=== PATIENT | male | born 1960 | race African-American/Black ===

== ENCOUNTER 2017-03-12 12:15 | Emergency (ER) | payer OTHER ==
[~2017-03-12] VITALS: Ht 170.2 cm; Wt 106.1 kg
[~2017-03-12 12:15] MED LIST: CELEBREX 200 M200 M1 PO; DESONIDE60 GM TP; FLEXERIL PO; IBUPROFEN 600600 M1 PO; IBUPROFEN 800800 M1 PO; INDOMETHACIN 2525 MG PO; LANTUS SOL100 UNIT/1 SQ; LYRICA100 MG PO; MOBIC; MORPHINE OR; MORPHINE SULFAT15 M3 PO; NEURONTIN 300300 M1 PO; NORCO 5-325 TA1 EACH PO; WELLBUTRIN SR150 MG PO
[2017-03-12] MEDS ORDERED: COZAAR 25 MG TA25 M1 PO (12:50)
[2017-03-12] MEDS ORDERED: VENTOLIN HFA 1818 GM INH (14:19)
[2017-03-12] MEDS ORDERED: MUCINEX D TABL1 EAC1 PO (14:19)
[2017-03-12] MEDS ORDERED: TESSALON PERLE100 MG PO (14:19)
== END 2017-03-12 14:32 | disposition home or self-care (01) ==
LOC: ER 12:15
DX: J11.1 Influenza due to unidentified influenza virus with other respiratory manifestations (principal); J98.01 Acute bronchospasm; F32.9 Major depressive disorder, single episode, unspecified; E11.9 Type 2 diabetes mellitus without complications; G89.29 Other chronic pain; M54.9 Dorsalgia, unspecified

== ENCOUNTER 2017-11-22 14:21 | Emergency (ER) | payer OTHER ==
[~2017-11-22] VITALS: Ht 175.3 cm; Wt 97.5 kg
--- NOTE | ~2017-11-22 | EKG ---
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: [facility] : 1960 Requested By: Shaheen Resendiz Order Number: [id number] MD: Farzad Gonzalez Measurements Intervals [place] Rate: 77 P: 25 NE: 174 QRS: 22 QRSD: 92 T: 7 QT: 385 QTc: 436 Interpretive Statements Sinus rhythm No significant abnormality Compared to ECG 01/07/2007 11:28:19 Sinus tachycardia no longer present Electronically Signed On 11-23-2017 10:08:38 CDT by Farzad Gonzalez [email or web address] <ELECTRONICALLY SIGNED> By: Farzad Gonzalez MD, [facility] 11/23/17 1008 1417 1417 Farzad Gonzalez MD, FACC /EPI
[~2017-11-22 14:21] MED LIST changes: +COZAAR 25 MG TA25 M1 PO; +MUCINEX D TABL1 EAC1 PO; +TESSALON PERLE100 MG PO; +VENTOLIN HFA 1818 GM INH
[2017-11-22 15:37] LABS: HEMATOCRIT 44.7 % (42.0-52.0); HEMOGLOBIN 15.4 gm/dL (14.0-18.0); MCH 31.6 pg (26.0-34.0); MCHC 34.4 g/dL (28.0-37.0); MCV 91.9 fL (80.0-100.0); RBC 4.86 mil/uL (4.50-6.00); RDW 13.6 % (10.5-14.5); WBC 5.6 thou/uL (4.0-11.0)
[2017-11-22 17:15] LABS: ANION GAP 6 mmol/L (7-16); BUN 14 mg/dL (7-18); CALCIUM 9.6 mg/dL (8.5-10.1); CHLORIDE 101 mmol/L (98-107); CO2 27 mmol/L (21-32); CREATININE 1.2 mg/dL (0.7-1.3); GLUCOSE 133 mg/dL (74-106); POTASSIUM 3.9 mmol/L (3.5-5.1); SODIUM 134 mmol/L (136-145); TROPONIN-I <0.06 ng/mL (<0.06)
[2017-11-22 17:50] VITALS: BP 169/97
== END 2017-11-22 17:59 | disposition home or self-care (01) ==
LOC: ER 14:21
PROVIDERS: Emergency Medicine
DX: R55 Syncope and collapse (principal); G89.29 Other chronic pain; M54.9 Dorsalgia, unspecified; F32.9 Major depressive disorder, single episode, unspecified; E11.9 Type 2 diabetes mellitus without complications; Z79.4 Long term (current) use of insulin

== ENCOUNTER 2018-03-04 19:31 | Emergency (ER) | payer OTHER ==
[~2018-03-04] VITALS: Ht 167.6 cm; Wt 97.5 kg
[2018-03-04 20:28] LABS: ABSOLUTE NEUTROPHILS 2.8 thou/uL (1.4-8.2); BASOPHILS 1.4 % (0.0-2.0); EOSINOPHILS 0.6 % (0.0-3.0); HEMATOCRIT 42.2 % (42.0-52.0); HEMOGLOBIN 14.3 gm/dL (14.0-18.0); LYMPHOCYTES 26.7 % (24.0-44.0); MCH 30.9 pg (26.0-34.0); MCHC 33.9 g/dL (28.0-37.0); MCV 91.4 fL (80.0-100.0); PLATELET COUNT 279 thou/uL (150-400); POLYS 63.3 % (36.0-66.0); RBC 4.62 mil/uL (4.50-6.00); RDW 13.7 % (10.5-14.5); WBC 4.5 thou/uL (4.0-11.0)
[2018-03-04 20:38] LABS: ANION GAP 6 mmol/L (7-16); BUN 12 mg/dL (7-18); CALCIUM 9.3 mg/dL (8.5-10.1); CHLORIDE 100 mmol/L (98-107); CO2 31 mmol/L (21-32); CREATININE 1.2 mg/dL (0.7-1.3); GLUCOSE 230 mg/dL (74-106); POTASSIUM 4.3 mmol/L (3.5-5.1); SODIUM 137 mmol/L (136-145)
[2018-03-04 20:46] LABS: ALBUMIN 3.7 g/dL (3.4-5.0); SGOT 17 U/L (15-37); SGPT 20 U/L (30-65); TOTAL BILIRUBIN 0.4 mg/dL (<0.1-1.0); TOTAL PROTEIN 7.8 g/dL (6.4-8.2); TROPONIN-I <0.06 ng/mL (<0.06)
[2018-03-04 22:21] VITALS: BP 127/73
[2018-03-04 22:23] LABS: URINE BILIRUBIN NEGATIVE (Negative); URINE BLOOD NEGATIVE (Negative); URINE CLARITY CLEAR; URINE COLOR YELLOW; URINE GLUCOSE-RANDOM* NEGATIVE (Negative); URINE KETONES NEGATIVE (Negative); URINE LEUKOCYTES NEGATIVE (Negative); URINE NITRITE NEGATIVE (Negative); URINE PROTEIN (DIPSTICK) NEGATIVE (Negative); URINE SPECIFIC GRAVITY 1.025 (1.005-1.035)
[2018-03-04 22:29] LABS: AMP/METHAMP Negative (Negative); BARBITURATES Negative (Negative); BENZODIAZEPINES Negative (Negative); COCAINE Negative (Negative); METHADONE Negative (Negative); OPIATES Negative (Negative); PCP Negative (Negative)
--- NOTE | 2018-03-05 08:27 | EKG ---
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
== END 2018-03-04 22:22 | disposition home or self-care (01) ==
LOC: ER 19:31
PROVIDERS: Emergency Medicine
DX: S06.9X0A Unspecified intracranial injury without loss of consciousness, initial encounter (principal); E11.9 Type 2 diabetes mellitus without complications; R55 Syncope and collapse; G89.29 Other chronic pain; M54.9 Dorsalgia, unspecified; F32.9 Major depressive disorder, single episode, unspecified; Z79.4 Long term (current) use of insulin; W18.39XA Other fall on same level, initial encounter; Y92.89 Other specified places as the place of occurrence of the external cause; Y93.89 Activity, other specified; Y99.8 Other external cause status

== ENCOUNTER → 2018-03-20 | Outpatient (CLI) | payer OTHER ==
--- NOTE | 2018-03-20 11:31 | 2DMMODE ---
[facility] [place] [address] 2 D/M-MODE ECHOCARDIOGRAM Name: BRYCE BUCKLEY Room #: [facility]#: [id number] Admission: 03/20/18 Attend Phys: lE Adams MD Discharge: Date of : 64 Date of Service: 03/20/18 1130 Report #: [id number] THIS REPORT FOR: //name// APPROVED REPORT Study performed: 03/20/2018 10:32:34 EXAM: Comprehensive 2D, Doppler, and color-flow Echocardiogram Patient Location: Out-Patient Status: routine BSA: 2.06 HR: 67 bpm BP: 133/79 mmHg Rhythm: NSR Other Information Study Quality: Adequate Indications Diabetes Syncope 2D Dimensions RVDd: 31.79 mm IVSd: 12.22 (7-11mm) LVOT Diam: 21.07 (18-24mm) LVDd: 41.59 mm PWd: 12.00 (7-11mm) Ascending Ao: 33.20 (22-36mm) LVDs: 26.08 (25-40mm) Aortic Root: 31.92 mm Volumes Left Atrial Volume (Systole) Single Plane 4CH: 33.01 mL Single Plane 2CH: 38.99 mL LA ESV Index: 20.00 mL/m2 Aortic Valve AoV Peak Amador.: 1.31 m/s AO Peak Gr.: 6.86 mmHg Mitral Valve E/A Ratio: 1.2 MV Decel. Time: 160.64 ms MV E Max Amador.: 0.71 m/s MV A Amador.: 0.57 m/s MV PHT: 46.58 ms [facility] [address] [place] [address] 2 D/M-MODE ECHOCARDIOGRAM Name: BRYCE BUCKLEY Room #: REG CL [facility]#: [id number] Admission: 03/20/18 Attend Phys: El Adams MD Discharge: Date of : 64 Date of Service: 03/20/18 1130 Report #: [id number] IVRT: 96.89 ms Pulmonary Valve PV Peak Amador.: 1.05 m/s PV Peak Gr.: 4.42 mmHg Pulmonary Vein P Vein S: 1.25 m/s Tricuspid Valve TR Peak Amador.: 2.37 m/s RAP Estimate: 5.00 mmHg TR Peak Gr.: 22.49 mmHg PA Pressure: 27.00 mmHg Left Ventricle The left ventricle is normal size. There is normal LV segmental wall motion. There is normal left ventricular wall thickness. Left ventricular systolic function is normal. LVEF is 60-65%. Right Ventricle The right ventricle is normal size. The right ventricular systolic function is normal. Atria The left atrium size is normal. The right atrium size is normal. Aortic Valve The aortic valve is normal in structure. No aortic regurgitation is present. There is no aortic valvular stenosis. Mitral Valve The mitral valve is normal in structure. Trace mitral regurgitation. No evidence of mitral valve stenosis. Tricuspid Valve The tricuspid valve is normal in structure. Trace to mild tricuspid regurgitation. Estimated PAP is 25-30mmHg. Pulmonic Valve The pulmonary valve is normal in structure. There is no pulmonic valvular regurgitation. [facility] [address] [place] [address] 2 D/M-MODE ECHOCARDIOGRAM Name: BRYCE BUCKLEY Room #: [facility]#: [id number] Admission: 03/20/18 Attend Phys: El Adams MD Discharge: Date of : 64 Date of Service: 03/20/18 1130 Report #: [id number] Great Vessels The aortic root is normal in size. The ascending aorta is normal in size. IVC is normal in size and collapses >50% with inspiration. Pericardium There is no pericardial effusion. <Conclusion> The left ventricle is normal size. There is normal left ventricular wall thickness. Left ventricular systolic function is normal. The right ventricle is normal size. The left atrium size is normal. The aortic valve is normal in structure. Trace mitral regurgitation. Trace to mild tricuspid regurgitation. Estimated PAP is 25-30mmHg. <ELECTRONICALLY SIGNED> By: El Adams MD 03/20/18 1130 1130 1130 El Adams MD /INF
== END ==
LOC: NUC 07:23
DX: I35.8 Other nonrheumatic aortic valve disorders (principal); R55 Syncope and collapse; R09.89 Other specified symptoms and signs involving the circulatory and respiratory systems

== ENCOUNTER → 2018-03-31 | Outpatient (CLI) | payer OTHER ==
[~2018-03-31] VITALS: Ht 167.6 cm; Wt 97.5 kg
[~2018-03-31] MED LIST changes: +GABAPENTIN 100100 MG PO; +NAMENDA 10 MG T10 MG PO; +TRAMADOL 50 MG50 MG PO
[2018-03-31 08:16] VITALS: BP 131/78
[2018-03-31 08:16] LABS: HEMATOCRIT 43.1 % (42.0-52.0); HEMOGLOBIN 14.4 gm/dL (14.0-18.0); MCH 30.6 pg (26.0-34.0); MCHC 33.5 g/dL (28.0-37.0); MCV 91.5 fL (80.0-100.0); RBC 4.71 mil/uL (4.50-6.00); RDW 13.5 % (10.5-14.5); WBC 4.7 thou/uL (4.0-11.0)
[2018-03-31 08:23] LABS: CALCIUM 9.4 mg/dL (8.5-10.1); CREATININE 1.2 mg/dL (0.7-1.3); POTASSIUM 3.6 mmol/L (3.5-5.1)
--- NOTE | 2018-03-31 08:32 | EKG ---
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
--- NOTE | 2018-03-31 11:59 | CATHLAB ---
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 A PINNACLE 4FR Sheath #[id number] sheath was inserted into the RFA^. Coronary angiography was performed using coronary diagnostic catheters. The right coronary system was accessed and visualized with a JR4 catheter. The left coronary system was accessed and visualized with a JL4 catheter. The left ventricle was accessed and visualized with a PIGTAIL catheter. Left ventricular/Aortic Valve gradient assessed via catheter pullback. Left ventriculogram was performed in 30 degree projection. Hemostasis was obtained with manual pressure following sheath removal without any complications. There was no hematoma. Intraoperative Conscious Sedation Sedation start time: 9.00 Case end Time: 9.40 Fentanyl 25 mcg Versed 0.5 mg Fluoro Time: 1.24 minutes Dose: DAP 4073 cGycm2 525 mGy Contrast Type and Amount: Omnipaque 85 ml [facility] [address] [place] [address] INVASIVE PROCEDURE REPORT Name: BRYCE BUCKLEY Room #: [facility]#: [id number] Admission: 03/31/18 Attend Phys: El Adams MD Discharge: Date of : 64 Date of Service: 03/31/18 1159 Report #: [id number] Coronary Angiography The patient's coronary anatomy is right dominant. Diagnostic Cath Left Main This is a large caliber vessel, with no flow-limiting lesions. LAD This is a moderate to large size caliber vessel, traversing the anterior wall and wrapping around the apex, terminating in the mid inferior segment. This vessel is patent, with no flow-limiting lesions. Diagonal 1 This is a patent vessel, with no flow-limiting lesions. Circumflex This is a small-caliber vessel, with no flow-limiting lesions. Right Coronary This is a dominant vessel, with no flow-limiting lesions. R PDA This is a small-caliber vessel, with no flow-limiting lesions. RPLV This is a small-caliber vessel, with no flow-limiting lesions. Ramus This is a moderate size caliber vessel, traversing down the entire length of the lateral wall and supplying multiple branches before it terminates in the inferior wall. This vessel is patent with no flow-limiting lesions. Left Ventriculography The left ventricle is normal in size with normal contractility. The left ventricular ejection fraction is estimated to be >55%. Hemodynamics The aortic pressure is 120/38 mmHg with a mean of 68 mmHg. The left ventricular pressure is 118/12 mmHg with a mean of mmHg. The left ventricular end diastolic pressure is 21 mmHg. There was no gradient across the aortic valve upon pullback. Pullback from the left ventricle to the aorta revealed no gradient across the aortic valve. Conclusion 1. Angiographically normal coronary arteries. 2. Right dominant system. [facility] [address] [place] [address] INVASIVE PROCEDURE REPORT Name: BRYCE BUCKLEY Room #: [facility]#: [id number] Admission: 03/31/18 Attend Phys: El Adams MD Discharge: Date of : 64 Date of Service: 03/31/18 1159 Report #: [id number] 3. Normal LV systolic function. 4. Recommend risk factor management. <ELECTRONICALLY SIGNED> By: El Adams MD 03/31/18 1159 1159 1159 El Adams MD /ANA ROSA
== END | disposition home or self-care (01) ==
LOC: CATH 03-24 14:13
PROVIDERS: Internal Medicine Cardiovascular Disease
DX: R94.39 Abnormal result of other cardiovascular function study (principal); R55 Syncope and collapse; G89.29 Other chronic pain; F32.9 Major depressive disorder, single episode, unspecified; E11.9 Type 2 diabetes mellitus without complications; R06.00 Dyspnea, unspecified

== ENCOUNTER 2020-03-15 16:24 | Emergency (ER) | payer OTHER ==
[~2020-03-15] VITALS: Ht 175.3 cm; Wt 83.9 kg
[2020-03-15 16:50] LABS: ABSOLUTE NEUTROPHILS 5.2 thou/uL (1.4-8.2); HEMOGLOBIN 14.5 gm/dL (14.0-18.0); LYMPHOCYTES 23.3 % (24.0-44.0); MCHC 33.7 g/dL (28.0-37.0); MONOCYTES 9.9 % (1.0-8.0); PLATELET COUNT 428 thou/uL (150-400); POLYS 63.8 % (36.0-66.0); RBC 4.68 mil/uL (4.50-6.00); RDW 13.8 % (10.5-14.5); WBC 8.2 thou/uL (4.0-11.0)
[2020-03-15 16:59] LABS: CALCIUM 10.1 mg/dL (8.5-10.1); POTASSIUM 4.1 mmol/L (3.5-5.1)
[2020-03-15 17:05] LABS: ALBUMIN 3.5 g/dL (3.4-5.0); TOTAL BILIRUBIN 0.2 mg/dL (0.2-1.0); TOTAL PROTEIN 8.1 g/dL (6.4-8.2)
[2020-03-15 17:55] LABS: URINE BILIRUBIN NEGATIVE (Negative); URINE BLOOD NEGATIVE (Negative); URINE CLARITY CLEAR; URINE GLUCOSE-RANDOM* 2+ (Negative); URINE KETONES NEGATIVE (Negative); URINE LEUKOCYTES-REFLEX NEGATIVE (Negative); URINE NITRITE-REFLEX NEGATIVE (Negative); URINE PROTEIN (DIPSTICK) NEGATIVE (Negative); URINE SPECIFIC GRAVITY 1.025 (1.005-1.035)
[2020-03-15 17:57] LABS: URINE COLOR YELLOW
[2020-03-15] MEDS ORDERED: LANTUS SUBQ (19:14)
[2020-03-15 20:45] VITALS: BP 133/81
== END 2020-03-15 21:13 | disposition home or self-care (01) ==
LOC: ER 16:24
PROVIDERS: Emergency Medicine
DX: E11.65 Type 2 diabetes mellitus with hyperglycemia (principal); F03.90 Unspecified dementia, unspecified severity, without behavioral disturbance, psychotic disturbance, mood disturbance, and anxiety; F32.9 Major depressive disorder, single episode, unspecified; Z79.899 Other long term (current) drug therapy; Z79.4 Long term (current) use of insulin; Z93.1 Gastrostomy status